=== PATIENT | female | born 1975 | race Hispanic/Latino ===

== ENCOUNTER 2016-05-24 17:13 | Emergency (ER) | payer OTHER ==
[2016-05-24] MEDS ORDERED: AZITHROMYCIN 250 MG TAB As Ordered ONE (20:09)
[2016-05-24] MEDS ORDERED: cefTRIAXone SOD 250 MG VIAL (J0696) As Ordered ONE (20:09)
--- NOTE | 2016-05-24 21:04 | EDDOCDS ---
Physician Documentation [facility] Name: Michelle Silva Age: 41 yrs Sex: Female : 1975 Arrival Date: 05/24/2016 Time: 17:13 Bed I9 / Private MD: Unknown, Family Dr Disposition: 05/24/16 20:52 Discharged to Home/Self Care. Impression: Dysuria, Encounter for screening for infections with a predominantly sexual mode of transmission. - Condition is Stable. - Discharge Instructions: Dysuria, Sexually Transmitted Disease. - Prescriptions for Pyridium 200 mg Oral Tablet - take 1 tablet by ORAL route every 8 hours for 3 days; 9 tablet. - Medication Reconciliation, Local Pharmacy Hours form. - Follow up: Private Physician; When: 2 - 3 days; Reason: Recheck today's complaints, Continuance of care. - Problem is new. - Symptoms have improved. - Notes: PLEASE FOLLOW UP WITH YOUR GEOPHYSICAL PROSPECTING PERMIT AGENT DOCTOR, RETURN TO THE ER IF THE SYMPTOMS WORSEN OR BECOME CONCERNING, PLEASE ABSTAIN FROM INTERCOURSE UNTIL ALL RESULTS FROM TODAYS TESTS ARE KNOWN Historical: - Allergies: no known allergies; - Home Meds: 1. none - PMHx: none; - PSHx: none; - Social history: Smoking status: Patient states was never smoker of tobacco. No barriers to communication noted, The patient speaks fluent Georgian. - Family history: Not pertinent. - : The pt / caregiver states he / she is not on anticoagulants. Home medication list is obtained from the patient. - Exposure Risk Screening:: None identified. 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 4 in. (162.56 cm); Pain 10/10; 19:13 Pain 5/10; lf1 17:15 Body Mass Index 27.12 (71.67 kg, 162.56 cm) cmb MDM: 17:46 UCG by Nursing ordered. dt4 17:47 Urinalysis Ordered. EDMS 17:47 Urine Culture Ordered. EDMS 18:46 Urinalysis Reviewed. ck7 18:55 Set up pelvic ordered. ck7 18:57 GC & Chlamydia Amplification Ordered. EDMS 18:57 Wet Prep Ordered. EDMS 19:14 Financial registration complete. gjb 19:15 [facility] Payment Agreement was scanned into [employer] and attached to record. gjb 20:05 cefTRIAXone 250 mg IM once ordered. ck7 20:05 azithromycin 1 grams PO once ordered. ck7 20:50 Wet Prep Reviewed. ck7 Point of Care Testing: Urine : 20:57 hCG Reading: Negative; Control Reading: Positive; dsf Ranges: Administered Medications: 20:20 Drug: cefTRIAXone 250 mg [ceftriaxone 250 mg solution for injection (250 mg)] Route: lf1 IM; Site: right gluteus; 20:20 Drug: azithromycin 1 grams [azithromycin 250 mg tablet (4 tabs)] Route: PO; lf1 Signatures: Dispatcher [employer] EDNanette VivarRN RN rs3 Mimi Saavedra RN RN dsf Mo Curry, RPA-C RPA-Cck7 Khadijah Weiss PA-C PA-C dt4 Roxy Johnson Lisa RN lf1 The chart was reviewed and I authenticate all verbal orders and agree with the evaluation and treatment provided.Attachments: 19:15 [facility] Payment Agreement gjb MTDD
--- NOTE | 2016-05-24 21:04 | EDDOCDS ---
Nurse's Notes [facility] Name: Michelle Silva Age: 41 yrs Sex: Female : 1975 Arrival Date: 05/24/2016 Time: 17:13 Bed I9 / 22 Private MD: Jose Luis, Family Dr Diagnosis: Dysuria;Encounter for screening for infections with a predominantly sexual mode of transmission Presentation: 05/24 17:35 Presenting complaint: Patient states: burning/urgency/hesitancy with urination since rs3 noon. denies fever,chills/flank pain. Adult Sepsis Screening: The patient does not have new or worsening altered mentation. Patient's respiratory rate is less than 22. Systolic blood pressure is greater than 100. Patient has a qSOFA score of 0- Negative Sepsis Screen. Suicide/Homicide risk assessment- the patient denies having any suicidal and/or homicidal ideations and does not present with any other emotional, behavioral or mental health complaints. Status: The patient is a dependent. Transition of care: patient was not received from another setting of care. 17:35 Acuity: AL Level 4 rs3 17:35 Method Of Arrival: Walkin/Carried/Asstd rs3 Triage Assessment: 17:37 General: Appears in no apparent distress. Pain: Location: pelvis. HIV screening NA for rs3 this visit Offered previously. 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 none - PMHx: none; - PSHx: none; - Social history: Smoking status: Patient states was never smoker of tobacco. No barriers to communication noted, The patient speaks fluent Samoan. - Family history: Not pertinent. - : The pt / caregiver states he / she is not on anticoagulants. Home medication list is obtained from the patient. - Exposure Risk Screening:: None identified. Screenin:13 Screening information is obtained from the patient. Fall risk: No risks identified. lf1 21:02 Assistance ADL's: requires no assistance with activities of daily living. Abuse/DV dsf Screen: The patient / caregiver reports he/she is: not in a situation that causes fear, pain or injury. Nutritional screening: No deficits noted. Advance Directives: Currently, there is no health care proxy. home support is adequate. Assessment: 19:13 Adult Sepsis Screening: The patient does not have new or worsening altered mentation. lf1 Patient's respiratory rate is less than 22. Systolic blood pressure is greater than 100. Patient has a qSOFA score of 0- Negative Sepsis Screen. General: Appears in no apparent distress, comfortable, Behavior is cooperative. Pain: Location: pelvis Pain currently is 5 out of 10 on a pain scale. Quality of pain is described as burning. Neurological: Level of Consciousness is awake, alert, Oriented to person, place, time. EENT: No deficits noted. Respiratory: Respiratory effort is even, unlabored, Respiratory pattern is regular, Breath sounds are clear bilaterally. GI: Denies nausea, vomiting. : Reports burning in vaginal area that does not increase with urination Denies burning with urination. Derm: Skin is intact. 21:02 General: Appears in no apparent distress, comfortable, Behavior is appropriate for age, dsf cooperative. Pain: Denies pain. Neurological: Level of Consciousness is awake, alert. Cardiovascular: Capillary refill < 3 seconds. Respiratory: Airway is patent Respiratory effort is even, unlabored, Respiratory pattern is regular, symmetrical. Derm: Skin is pink, warm & dry. Vital Signs: 17:15 BP 127 / 70; Pulse 84; Resp 16; Temp 96.9(O); Pulse Ox 100% ; Weight 71.67 kg; Height 5 cmb ft. 4 in. (162.56 cm); Pain 10/10; 19:13 Pain 5/10; lf1 17:15 Body Mass Index 27.12 (71.67 kg, 162.56 cm) b Vitals: 17:15 Log In Time: May 24, 2016 at 17:13. b ED Course: 17:15 Patient visited by Noreen Spears. cmb 17:15 Unknown, Family Dr is Private Physician. cmb 17:15 Patient moved to Waiting cmb 17:16 Patient moved to Pre RCE cmb 17:36 Triage Initiated rs3 18:30 Patient moved to Triage 1 rs3 18:31 Patient visited by Ora Spence RN. mk4 18:39 [facility] Curry [facility] ck7 18:39 Ruben Valente MD is Attending Physician. ck7 18:40 Urine Culture Sent. mk4 18:40 Urinalysis Sent. mk4 18:50 Patient visited by Mo Curry RPA-C. ck7 18:58 Patient moved to rs3 19:01 Patient visited by Mo Curry RPA-C. ck7 19:13 The patient / caregiver is instructed regarding the plan of care and ED course. lf1 19:15 Patient visited by Estelle Schwartz RN. lf1 19:15 [facility] Payment Agreement was scanned into [employer] and attached to record. gjb 19:17 Patient name changed from Marayda\S\\S\Silva\S\ to Marayda\S\ \S\Silva. EDMS 19:54 Patient visited by Mo Curry RPA-C. ck7 19:57 Assist provider with pelvic exam: Set up pelvic tray. Specimens sent to lab. Performed dsf by Mo STEVENS Patient tolerated well. 20:03 GC & Chlamydia Amplification Sent. ajs 20:03 Wet Prep Sent. ajs 20:20 Patient visited by Estelle Schwartz,ELMIRA. lf1 20:21 Patient visited by Estelle Schwartz,ELMIRA. lf1 21:02 No IV's were initiated during this patient's visit. dsf Administered Medications: 20:20 Drug: cefTRIAXone 250 mg [ceftriaxone 250 mg solution for injection (250 mg)] Route: lf1 IM; Site: right gluteus; 20:20 Drug: azithromycin 1 grams [azithromycin 250 mg tablet (4 tabs)] Route: PO; lf1 Point of Care Testing: Urine : 20:57 hCG Reading: Negative; Control Reading: Positive; dsf Ranges: Order Results: Lab Order: Urinalysis; SPEC'M 05/24/16 18:32 Test: APPEARANCE, URINE; Value: CLEAR; Range: CLEAR; Status: F Test: COLOR, URINE; Value: COLORLESS; Range: YELLOW; Status: F Test: PH,URINE; Value: 6.0; Range: 5.0-9.0; Units: UNITS; Status: F Test: SPECIFIC GRAVITY URINE AUTO; Value: 1.001; Range: 1.002-1.035; Abnormal: Below low normal; Status: F Test: PROTEIN, URINE AUTO; Value: NEGATIVE; Range: NEGATIVE; Units: mg/dL; Status: F Test: GLUCOSE, URINE (UA) AUTO; Value: NEGATIVE; Range: NEGATIVE; Units: mg/dL; Status: F Test: KETONE, URINE AUTO; Value: NEGATIVE; Range: NEGATIVE; Units: mg/dL; Status: F Test: UROBILINOGEN, URINE AUTO; Value: 0.2; Range: 0.0-2.0; Units: mg/dL; Status: F Test: BILIRUBIN, URINE AUTO; Value: NEGATIVE; Range: NEGATIVE; Status: F Test: NITRITE, URINE AUTO; Value: NEGATIVE; Range: NEGATIVE; Status: F Test: LEUKOCYTE ESTERASE, URINE AUTO; Value: NEGATIVE; Range: NEGATIVE; Status: F Test: BLOOD, URINE BLOOD; Value: 3+; Range: NEGATIVE; Abnormal: Above high normal; Status: F Test: WBC, URINE AUTO; Value: 0; Range: 0-3; Units: /HPF; Status: F Test: RBC, URINE AUTO; Value: 1; Range: 0-3; Units: /HPF; Status: F Test: BACTERIA, URINE AUTO; Value: 1+; Range: NEGATIVE; Abnormal: Above high normal; Status: F Test: SQUAMOUS EPITHELIAL CELL UR AU; Value: 0; Range: 0-6; Units: /HPF; Status: F Test: HYALINE CAST, URINE AUTO; Value: 0; Range: 0-1; Units: /LPF; Status: F Lab Order: Wet Prep; SPEC'M 05/24/16 20:01 Test: WET PREP; Value: WET PREP RESULT; Status: F Test: WET PREP; Value: MANY EPITHELIAL CELLS PRESENT; Status: F Test: WET PREP; Value: MODERATE WBC; Status: F Test: WET PREP; Value: FEW SHORT RODS PRESENT; Status: F Outcome: 20:52 Discharge ordered by Provider. ck7 21:02 Discharge Assessment: Patient awake, alert and oriented x 3. No cognitive and/or dsf functional deficits noted. Patient verbalized understanding of disposition instructions. patient administered narcotics - no. The following High Risk Discharge criteria are identified: None. Discharged to home ambulatory. Condition: stable. Discharge instructions given to patient, Instructed on discharge instructions, follow up and referral plans. medication usage, Demonstrated understanding of instructions, medications, Pt was receptive of discharge instructions/ teaching. Prescriptions given X 1. No special radiology studies were completed. Property sent home with patient. 21:03 Patient left the ED. dsf Signatures: Dispatcher [employer] EDDE Estelle Schwartz,RN RN lf1 Nanette GarciaRN RN rs3 Mimi SaavedraRN RN dsf Rebecca, Noreen Sparks Christopher, RPA-C RPA-Cck7 Ora Spence RN RN mk4 Roxy Johnson MTDD
--- NOTE | 2016-05-26 22:04 | EDDOCDS ---
Physician Documentation [facility] Name: Michelle Silva Age: 41 yrs Sex: Female : 1975 Arrival Date: 05/24/2016 Time: 17:13 Bed I9 / Private MD: Unknown, Family Dr Disposition: 05/24/16 20:52 Discharged to Home/Self Care. Impression: Dysuria, Encounter for screening for infections with a predominantly sexual mode of transmission. - Condition is Stable. - Discharge Instructions: Dysuria, Sexually Transmitted Disease. - Prescriptions for Pyridium 200 mg Oral Tablet - take 1 tablet by ORAL route every 8 hours for 3 days; 9 tablet. - Medication Reconciliation, Local Pharmacy Hours form. - Follow up: Private Physician; When: 2 - 3 days; Reason: Recheck today's complaints, Continuance of care. - Problem is new. - Symptoms have improved. - Notes: PLEASE FOLLOW UP WITH YOUR GEOCHEMICAL MANAGER DOCTOR, RETURN TO THE ER IF THE SYMPTOMS WORSEN OR BECOME CONCERNING, PLEASE ABSTAIN FROM INTERCOURSE UNTIL ALL RESULTS FROM TODAYS TESTS ARE KNOWN Historical: - Allergies: no known allergies; - Home Meds: 1. none - PMHx: none; - PSHx: none; - Social history: Smoking status: Patient states was never smoker of tobacco. No barriers to communication noted, The patient speaks fluent Azerbaijani. - Family history: Not pertinent. - : The pt / caregiver states he / she is not on anticoagulants. Home medication list is obtained from the patient. - Exposure Risk Screening:: None identified. 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 4 in. (162.56 cm); Pain 10/10; 19:13 Pain 5/10; lf1 17:15 Body Mass Index 27.12 (71.67 kg, 162.56 cm) cmb MDM: 17:46 UCG by Nursing ordered. dt4 17:47 Urinalysis Ordered. EDMS 17:47 Urine Culture Ordered. EDMS 18:46 Urinalysis Reviewed. ck7 18:55 Set up pelvic ordered. ck7 18:57 GC & Chlamydia Amplification Ordered. EDMS 18:57 Wet Prep Ordered. EDMS 19:14 Financial registration complete. [facility] 19:15 [facility] Payment Agreement was scanned into [employer] and attached to record. gjb 20:05 cefTRIAXone 250 mg IM once ordered. ck7 20:05 azithromycin 1 grams PO once ordered. ck7 20:50 Wet Prep Reviewed. ck7 05/25 10:10 T-Sheet-- Draft Copy was scanned into [employer] and attached to record. gb Point of Care Testing: Urine : 05/24 20:57 hCG Reading: Negative; Control Reading: Positive; dsf Ranges: Administered Medications: 20:20 Drug: cefTRIAXone 250 mg [ceftriaxone 250 mg solution for injection (250 mg)] Route: lf1 IM; Site: right gluteus; 20:20 Drug: azithromycin 1 grams [azithromycin 250 mg tablet (4 tabs)] Route: PO; lf1 Signatures: Dispatcher [employer] EDMS Charlette Vance, Reg Reg gb Nanette Garcia RN RN rs3 Mimi Saavedra RN RN dsf Mo Curry, RPA-C RPA-Cck7 Khadijah Weiss PA-C PA-C dt4 Roxy Johnson Lisa RN lf1 The chart was reviewed and I authenticate all verbal orders and agree with the evaluation and treatment provided.Attachments: 19:15 [facility] Payment Agreement [facility] 05/25 10:10 T-Sheet-- Draft Copy gb Chart Complete MTDD
--- NOTE | 2016-05-26 22:04 | EDDOCDS ---
Physician Documentation [facility] Name: Michelle Silva Age: 41 yrs Sex: Female : 1975 Arrival Date: 05/24/2016 Time: 17:13 Bed I9 / Private MD: Unknown, Family Dr Disposition: 05/24/16 20:52 Discharged to Home/Self Care. Impression: Dysuria, Encounter for screening for infections with a predominantly sexual mode of transmission. - Condition is Stable. - Discharge Instructions: Dysuria, Sexually Transmitted Disease. - Prescriptions for Pyridium 200 mg Oral Tablet - take 1 tablet by ORAL route every 8 hours for 3 days; 9 tablet. - Medication Reconciliation, Local Pharmacy Hours form. - Follow up: Private Physician; When: 2 - 3 days; Reason: Recheck today's complaints, Continuance of care. - Problem is new. - Symptoms have improved. 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 none - PMHx: none; - PSHx: none; - Social history: Smoking status: Patient states was never smoker of tobacco. No barriers to communication noted, The patient speaks fluent Hong Konger. - Family history: Not pertinent. - : The pt / caregiver states he / she is not on anticoagulants. Home medication list is obtained from the patient. - Exposure Risk Screening:: None identified. 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 4 in. (162.56 cm); Pain 10/10; 19:13 Pain 5/10; lf1 17:15 Body Mass Index 27.12 (71.67 kg, 162.56 cm) cmb MDM: 17:46 UCG by Nursing ordered. dt4 17:47 Urinalysis Ordered. EDMS 17:47 Urine Culture Ordered. EDMS 18:46 Urinalysis Reviewed. ck7 18:55 Set up pelvic ordered. ck7 18:57 GC & Chlamydia Amplification Ordered. EDMS 18:57 Wet Prep Ordered. EDMS 19:14 Financial registration complete. [facility] 19:15 [facility] Payment Agreement was scanned into [employer] and attached to record. gjb 20:05 cefTRIAXone 250 mg IM once ordered. ck7 20:05 azithromycin 1 grams PO once ordered. ck7 20:50 Wet Prep Reviewed. ck7 05/25 10:10 T-Sheet-- Draft Copy was scanned into [employer] and attached to record. gb Point of Care Testing: Urine : 05/24 20:57 hCG Reading: Negative; Control Reading: Positive; dsf Ranges: Administered Medications: 20:20 Drug: cefTRIAXone 250 mg [ceftriaxone 250 mg solution for injection (250 mg)] Route: lf1 IM; Site: right gluteus; 20:20 Drug: azithromycin 1 grams [azithromycin 250 mg tablet (4 tabs)] Route: PO; lf1 Signatures: Dispatcher [employer] EDMS Charlette Vance, Reg Reg gb Nanette Garcia RN RN rs3 Mimi Saavedra RN RN dsf Mo Curry, RPA-C RPA-Cck7 Khadijah Weiss PA-C PA-C dt4 Roxy Johnson Lisa RN lf1 The chart was reviewed and I authenticate all verbal orders and agree with the evaluation and treatment provided.Attachments: 19:15 [facility] Payment Agreement [facility] 05/25 10:10 T-Sheet-- Draft Copy gb Chart Complete MTDD
--- NOTE | 2016-05-26 22:05 | EDDOCDS ---
Nurse's Notes [facility] Name: Michelle Silva Age: 41 yrs Sex: Female : 1975 Arrival Date: 05/24/2016 Time: 17:13 Bed I9 / 22 Private MD: Jose Luis, Family Dr Diagnosis: Dysuria;Encounter for screening for infections with a predominantly sexual mode of transmission Presentation: 05/24 17:35 Presenting complaint: Patient states: burning/urgency/hesitancy with urination since rs3 noon. denies fever,chills/flank pain. Adult Sepsis Screening: The patient does not have new or worsening altered mentation. Patient's respiratory rate is less than 22. Systolic blood pressure is greater than 100. Patient has a qSOFA score of 0- Negative Sepsis Screen. Suicide/Homicide risk assessment- the patient denies having any suicidal and/or homicidal ideations and does not present with any other emotional, behavioral or mental health complaints. Status: The patient is a dependent. Transition of care: patient was not received from another setting of care. 17:35 Acuity: AL Level 4 rs3 17:35 Method Of Arrival: Walkin/Carried/Asstd rs3 Triage Assessment: 17:37 General: Appears in no apparent distress. Pain: Location: pelvis. HIV screening NA for rs3 this visit Offered previously. 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 none - PMHx: none; - PSHx: none; - Social history: Smoking status: Patient states was never smoker of tobacco. No barriers to communication noted, The patient speaks fluent Moldovan. - Family history: Not pertinent. - : The pt / caregiver states he / she is not on anticoagulants. Home medication list is obtained from the patient. - Exposure Risk Screening:: None identified. Screenin:13 Screening information is obtained from the patient. Fall risk: No risks identified. lf1 21:02 Assistance ADL's: requires no assistance with activities of daily living. Abuse/DV dsf Screen: The patient / caregiver reports he/she is: not in a situation that causes fear, pain or injury. Nutritional screening: No deficits noted. Advance Directives: Currently, there is no health care proxy. home support is adequate. Assessment: 19:13 Adult Sepsis Screening: The patient does not have new or worsening altered mentation. lf1 Patient's respiratory rate is less than 22. Systolic blood pressure is greater than 100. Patient has a qSOFA score of 0- Negative Sepsis Screen. General: Appears in no apparent distress, comfortable, Behavior is cooperative. Pain: Location: pelvis Pain currently is 5 out of 10 on a pain scale. Quality of pain is described as burning. Neurological: Level of Consciousness is awake, alert, Oriented to person, place, time. EENT: No deficits noted. Respiratory: Respiratory effort is even, unlabored, Respiratory pattern is regular, Breath sounds are clear bilaterally. GI: Denies nausea, vomiting. : Reports burning in vaginal area that does not increase with urination Denies burning with urination. Derm: Skin is intact. 21:02 General: Appears in no apparent distress, comfortable, Behavior is appropriate for age, dsf cooperative. Pain: Denies pain. Neurological: Level of Consciousness is awake, alert. Cardiovascular: Capillary refill < 3 seconds. Respiratory: Airway is patent Respiratory effort is even, unlabored, Respiratory pattern is regular, symmetrical. Derm: Skin is pink, warm & dry. Vital Signs: 17:15 BP 127 / 70; Pulse 84; Resp 16; Temp 96.9(O); Pulse Ox 100% ; Weight 71.67 kg; Height 5 cmb ft. 4 in. (162.56 cm); Pain 10/10; 19:13 Pain 5/10; lf1 17:15 Body Mass Index 27.12 (71.67 kg, 162.56 cm) b Vitals: 17:15 Log In Time: May 24, 2016 at 17:13. b ED Course: 17:15 Patient visited by Noreen Spears. cmb 17:15 Unknown, Family Dr is Private Physician. cmb 17:15 Patient moved to Waiting cmb 17:16 Patient moved to Pre RCE cmb 17:36 Triage Initiated rs3 18:30 Patient moved to Triage 1 rs3 18:31 Patient visited by Ora Spence RN. mk4 18:39 [facility] ck7 18:39 Ruben Valente MD is Attending Physician. ck7 18:40 Urine Culture Sent. mk4 18:40 Urinalysis Sent. mk4 18:50 Patient visited by Mo Curry RPA-C. ck7 18:58 Patient moved to rs3 19:01 Patient visited by Mo Curry RPA-C. ck7 19:13 The patient / caregiver is instructed regarding the plan of care and ED course. lf1 19:15 Patient visited by Estelle Schwartz RN. lf1 19:15 [facility] Payment Agreement was scanned into [employer] and attached to record. gjb 19:17 Patient name changed from Marayda\S\\S\Silva\S\ to Marayda\S\ \S\Silva. EDMS 19:54 Patient visited by Mo Curry RPA-C. ck7 19:57 Assist provider with pelvic exam: Set up pelvic tray. Specimens sent to lab. Performed dsf by Mo STEVENS Patient tolerated well. 20:03 GC & Chlamydia Amplification Sent. ajs 20:03 Wet Prep Sent. ajs 20:20 Patient visited by Estelle Schwartz,ELMIRA. lf1 20:21 Patient visited by Estelle Schwartz,ELMIRA. lf1 21:02 No IV's were initiated during this patient's visit. dsf 05/25 10:10 T-Sheet-- Draft Copy was scanned into [employer] and attached to record. gb Administered Medications: 05/24 20:20 Drug: cefTRIAXone 250 mg [ceftriaxone 250 mg solution for injection (250 mg)] Route: lf1 IM; Site: right gluteus; 20:20 Drug: azithromycin 1 grams [azithromycin 250 mg tablet (4 tabs)] Route: PO; lf1 Point of Care Testing: Urine : 20:57 hCG Reading: Negative; Control Reading: Positive; dsf Ranges: Order Results: Lab Order: Urinalysis; SPEC'M 05/24/16 18:32 Test: APPEARANCE, URINE; Value: CLEAR; Range: CLEAR; Status: F Test: COLOR, URINE; Value: COLORLESS; Range: YELLOW; Status: F Test: PH,URINE; Value: 6.0; Range: 5.0-9.0; Units: UNITS; Status: F Test: SPECIFIC GRAVITY URINE AUTO; Value: 1.001; Range: 1.002-1.035; Abnormal: Below low normal; Status: F Test: PROTEIN, URINE AUTO; Value: NEGATIVE; Range: NEGATIVE; Units: mg/dL; Status: F Test: GLUCOSE, URINE (UA) AUTO; Value: NEGATIVE; Range: NEGATIVE; Units: mg/dL; Status: F Test: KETONE, URINE AUTO; Value: NEGATIVE; Range: NEGATIVE; Units: mg/dL; Status: F Test: UROBILINOGEN, URINE AUTO; Value: 0.2; Range: 0.0-2.0; Units: mg/dL; Status: F Test: BILIRUBIN, URINE AUTO; Value: NEGATIVE; Range: NEGATIVE; Status: F Test: NITRITE, URINE AUTO; Value: NEGATIVE; Range: NEGATIVE; Status: F Test: LEUKOCYTE ESTERASE, URINE AUTO; Value: NEGATIVE; Range: NEGATIVE; Status: F Test: BLOOD, URINE BLOOD; Value: 3+; Range: NEGATIVE; Abnormal: Above high normal; Status: F Test: WBC, URINE AUTO; Value: 0; Range: 0-3; Units: /HPF; Status: F Test: RBC, URINE AUTO; Value: 1; Range: 0-3; Units: /HPF; Status: F Test: BACTERIA, URINE AUTO; Value: 1+; Range: NEGATIVE; Abnormal: Above high normal; Status: F Test: SQUAMOUS EPITHELIAL CELL UR AU; Value: 0; Range: 0-6; Units: /HPF; Status: F Test: HYALINE CAST, URINE AUTO; Value: 0; Range: 0-1; Units: /LPF; Status: F Lab Order: Urine Culture; SPEC'M 05/24/16 18:32 Test: URINE CULTURE; Value: URINE CULTURE RESULT NO GROWTH; Status: F Lab Order: GC & Chlamydia Amplification; SPEC'M 05/24/16 20:01 Test: CHLAMYDIA DNA AMPLIFICATION; Value: NEGATIVE; Range: NEGATIVE; Status: F Test: GC DNA AMPLIFICATION; Value: NEGATIVE; Range: NEGATIVE; Status: F Lab Order: Wet Prep; SPEC'M 05/24/16 20:01 Test: WET PREP; Value: WET PREP RESULT; Status: F Test: WET PREP; Value: MANY EPITHELIAL CELLS PRESENT; Status: F Test: WET PREP; Value: MODERATE WBC; Status: F Test: WET PREP; Value: FEW SHORT RODS PRESENT; Status: F Outcome: 20:52 Discharge ordered by Provider. ck7 21:02 Discharge Assessment: Patient awake, alert and oriented x 3. No cognitive and/or dsf functional deficits noted. Patient verbalized understanding of disposition instructions. patient administered narcotics - no. The following High Risk Discharge criteria are identified: None. Discharged to home ambulatory. Condition: stable. Discharge instructions given to patient, Instructed on discharge instructions, follow up and referral plans. medication usage, Demonstrated understanding of instructions, medications, Pt was receptive of discharge instructions/ teaching. Prescriptions given X 1. No special radiology studies were completed. Property sent home with patient. 21:03 Patient left the ED. dsf Signatures: Dispatcher [employer] EDMS Charlette Vance, Reg Reg gb Estelle Schwartz,RN RN lf1 Nanette GarciaRN RN rs3 Mimi Saavedra,RN RN dsf Codi Fernandez Chelsea cmb Kwaczala, Christopher, RPA-C RPA-Cck7 Ora Spence RN RN mk4 Roxy Johnson Chart Complete [facility]
== END 2016-05-24 21:03 | disposition home or self-care (01) ==
LOC: M ED 17:13
DX: Z11.3 Encounter for screening for infections with a predominantly sexual mode of transmission (principal); R30.0 Dysuria
CPT/HCPCS: 81001; 81025; 87086; 87210; 87491; 87591; 96372; 99284; J0696

== ENCOUNTER → 2016-06-11 | Outpatient (CLI) | payer OTHER ==
--- NOTE | 2016-06-11 13:37 | REP ---
CHEST X-RAY: Two views. HISTORY: Persistent cough. FINDINGS: Lungs are well inflated and clear. Pleural angles are sharp. Heart size is normal. There are clips in right upper quadrant consistent with previous cholecystectomy. No infiltrate is seen. No bony abnormality is seen. IMPRESSION: Negative chest x-ray. Signed by Andrei Arndt MD 06/11/2016 03:17 P
== END ==
LOC: M LRY 10:13
PROVIDERS: ATTEND Physician Assistant
DX: R05 Cough (principal)
CPT/HCPCS: 71020; G0463

== ENCOUNTER → 2016-07-15 | Outpatient (REF) | payer OTHER | LOC: M SFHCLERA 09:25 | PROVIDERS: ATTEND Physician Assistant | DX: L29.8 Other pruritus (principal); N89.8 Other specified noninflammatory disorders of vagina ==

== ENCOUNTER → 2016-08-09 | Outpatient (REF) | payer OTHER | LOC: M LAB REF 13:08 | PROVIDERS: ATTEND Nurse Practitioner Women's Health | DX: Z87.440 Personal history of urinary (tract) infections (principal) ==

== ENCOUNTER → 2016-08-13 | Outpatient (REF) | payer OTHER | LOC: M LAB REF 16:06 | PROVIDERS: ATTEND Nurse Practitioner Women's Health | DX: Z87.440 Personal history of urinary (tract) infections (principal); R30.0 Dysuria ==

== ENCOUNTER → 2016-09-03 | Outpatient (REF) | payer OTHER | LOC: M SFHCLERA 10:06 | PROVIDERS: ATTEND Family Medicine | DX: Z13.29 Encounter for screening for other suspected endocrine disorder (principal); Z13.220 Encounter for screening for lipoid disorders ==

== ENCOUNTER → 2016-09-03 | Outpatient (CLI) | payer OTHER ==
--- NOTE | 2016-09-04 03:27 | REP ---
Clinical: Pain primarily involving the rotator cuff. Technique: Internal rotation, external rotation, and Y view. Findings: No acute fracture or dislocation. The acromioclavicular and glenohumeral joints are intact. No periarticular calcifications or degenerative changes are appreciated. Sub acromial space is normal. Surrounding soft tissues are unremarkable. Impression: Normal left shoulder radiographs. Signed by Cosmo Shah MD 09/04/2016 03:18 A
== END ==
LOC: M LRY 10:25
PROVIDERS: ATTEND Family Medicine
DX: M75.82 Other shoulder lesions, left shoulder (principal)
CPT/HCPCS: 73030; G0463

== ENCOUNTER → 2016-10-19 | Outpatient (CLI) | payer OTHER ==
--- NOTE | 2016-10-19 18:23 | REP ---
MRI study of the left shoulder without contrast: History: Left shoulder pain. Comparison radiographs 09/03/2016. Technique: Axial, oblique coronal, and oblique sagittal imaging planes are utilized. T1 and T2-weighted scans are obtained in the usual fashion with and without fat saturation. MRI findings: Cortical and medullary bone signal intensity are normal. Glenohumeral and acromioclavicular joint alignment is normal. There is a small amount of joint fluid visible and there is mild hypertrophy in the acromioclavicular joint. A small subacromial subdeltoid bursal effusion is seen. There is fairly dramatic swelling and increased signal intensity in the distal subscapularis and in the anterior aspect of the distal supraspinatus tendons consistent with tendonitis tendinosis change fairly advanced. There is evidence of a focal T2 hyperintensity at the distal supraspinatus tendon insertion consistent with a small focal not retracted full-thickness cuff tear. There is subcortical cyst formation in the adjacent greater tuberosity of the proximal humerus. Biceps, infraspinatus tendons appear intact. No anterior or posterior labral disruption is seen. No juxtaarticular cyst or mass is observed. Impression: Advanced tendonitis tendinosis change in the distal subscapularis and supraspinatus tendons. Findings consistent with full-thickness cuff tear at the distal supraspinatus tendon insertion. Signed by Andrei Arndt MD 10/22/2016 06:55 P
== END ==
LOC: M RAD 15:02
PROVIDERS: ATTEND Family Medicine
DX: M75.82 Other shoulder lesions, left shoulder (principal)

== ENCOUNTER → 2016-12-25 | Outpatient (REF) | payer OTHER | LOC: M SFHCWAGY 16:55 | PROVIDERS: ATTEND Nurse Practitioner Family | DX: Z11.3 Encounter for screening for infections with a predominantly sexual mode of transmission (principal) ==

== ENCOUNTER → 2016-12-26 | Outpatient (REF) | payer OTHER ==
[2016-12-26 11:36] LABS: MEAN CORPUSCULAR HEMOGLOBIN 26.9 pg (27.0-33.0); MEAN CORPUSCULAR HGB CONC 32.8 g/dl (32.0-36.5); RED CELL DISTRIBUTION WIDTH 13.7 % (11.5-14.5); WHITE BLOOD COUNT 5.2 K/mm3 (4.0-10.0)
[2016-12-26 11:52] LABS: FREE T4 1.19 NG/DL (0.76-1.46)
== END ==
LOC: M SFHCLERA 08:12
PROVIDERS: ATTEND Family Medicine
DX: Z13.29 Encounter for screening for other suspected endocrine disorder (principal); Z13.220 Encounter for screening for lipoid disorders

== ENCOUNTER → 2016-12-27 | Outpatient (CLI) | payer OTHER ==
--- NOTE | 2016-12-27 09:08 | REPMRS ---
Patient History The patient states she had a clinical breast exam in 08/2016. Family history of breast cancer in paternal aunt at age 50 or over. Digital Woman Screen Mammo: December 27, 2016 - Exam #: [id number] Bilateral CC and MLO view(s) were taken. Technologist: Viky Mora, Technologist No prior studies available for comparison. FINDINGS: The breast tissue is heterogeneously dense. This may lower the sensitivity of mammography. There is no evidence of cancer on this mammogram. ASSESSMENT: BI-RADS/ACR category 2 mammogram. Benign finding(s). Recommendation Routine screening mammogram of both breasts in 1 year (for women over age 40). This mammogram was interpreted with the aid of an FDA-approved computer-aided dectection system. Electronically Signed By: Ronald Covington MD 12/27/16 0908
== END ==
LOC: M WHC 08:13
PROVIDERS: ATTEND Family Medicine
DX: Z12.31 Encounter for screening mammogram for malignant neoplasm of breast (principal); R92.8 Other abnormal and inconclusive findings on diagnostic imaging of breast

== ENCOUNTER → 2016-12-27 | Outpatient (CLI) | payer OTHER ==
--- NOTE | 2016-12-27 13:20 | REP ---
Pelvic ultrasound including transabdominal and endovaginal ultrasound: The bladder is adequately distended. The uterus is slightly retroverted and upper normal size measuring 9.2 x 5.2 x 7.4 cm. The endometrium is upper normal thickness measuring 14.9 mm with a heterogeneous echotexture compatible with the late secretory phase. The ovaries are normal size. Right ovary measures 3.6 x 1.2 x 2.8 cm. Left ovary measures 3.3 x 1.3 x 2.2 cm. There is a dominant follicle in the right ovary measuring up to 19 mm containing a daughter cyst. There is no dominant mass or cyst in the left ovary. There is a small volume of free fluid in the pelvis at the uterine fundus. Nabothian cysts are incidentally noted in the cervix. Impression: Essentially negative pelvic ultrasound. There is a dominant follicle in the right ovary containing a daughter cyst.
== END ==
LOC: M WHC 07:50
PROVIDERS: ATTEND Nurse Practitioner Family
DX: N93.9 Abnormal uterine and vaginal bleeding, unspecified (principal)
CPT/HCPCS: 76830; 76856; G0202

== ENCOUNTER → 2017-01-02 | Outpatient (REF) | payer OTHER | LOC: M SFHCWAGY 11:28 | PROVIDERS: ATTEND Nurse Practitioner Family | DX: N93.9 Abnormal uterine and vaginal bleeding, unspecified (principal) ==